=== PATIENT | male | born 1960 | race Caucasian/White ===

== ENCOUNTER → 2020-12-22 09:51 | Outpatient (CLI) | payer OTHER, MEDICAID, SELFPAY ==
--- NOTE | 2020-12-22 | DI.RAD.S_ITS ---
PROCEDURE: XR KNEE LT 3V INDICATIONS: Pain in left knee TECHNIQUE: 3 views of the knee were acquired. COMPARISON: None. FINDINGS: Bones: No fractures or dislocations. No suspicious bony lesions. Joint spaces appear grossly preserved. Soft tissues: No joint effusion. No suspicious soft tissue calcifications. IMPRESSION: Negative examination as above. If the patient's pain or other symptoms persist, consider further evaluation with MRI Dictated by: Dexter Gallagher M.D. on 12/22/2020 at 11:31 Approved by: Dexter Gallagher M.D. on 12/22/2020 at 11:33
--- NOTE | 2020-12-22 | DI.RAD.S_ITS ---
PROCEDURE: XR CHEST 2V INDICATIONS: Pain in left knee TECHNIQUE: 2 views of the chest were acquired. COMPARISON: None. FINDINGS: Surgical changes and devices: None. Lungs and pleura: Lungs are clear. No pleural effusions or pneumothorax. Bilateral symmetric appearing presumed nipple shadows. Mediastinum: Mediastinal contours are normal. Heart size is normal. Bones and chest wall: No suspicious bony abnormalities. Soft tissues appear unremarkable. IMPRESSION: No acute disease. Bilateral symmetric appearing presumed nipple shadows. At clinical discretion, this could be confirmed with repeat radiographs with nipple markers. Dictated by: Dexter Gallagher M.D. on 12/22/2020 at 11:24 Approved by: Dexter Gallagher M.D. on 12/22/2020 at 11:31
== END ==
PROVIDERS: PCP Family Medicine; Referring Provider Family Medicine; Visit Provider Family Medicine
DX: M25.562 Pain in left knee (principal); I10 Essential (primary) hypertension
CPT/HCPCS: 71046; 73562